=== PATIENT | male | born 1940 | race Caucasian/White ===

== ENCOUNTER 2020-12-05 07:59 | Emergency (ER) | payer MEDICARE ==
[~2020-12-05] VITALS: Ht 172.7 cm; Wt 114.8 kg
[~2020-12-05 07:59] MED LIST: ALLOPURINOL100 MG PO; ASPIR 8181 MG PO; ASPIRIN LOW-STR81 MG PO; CLEOCIN HCL300 MG PO; COLCRYS0.6 MG PO; CYMBALTA60 MG PO; GABAPENTIN100 MG PO; GABAPENTIN300 MG PO; HYDROCHLOROTHIA25 MG PO; LISINOPRIL-HCT1 EAC6 PO; LOSARTAN POTASS25 MG PO; NAPROXEN250 MG PO; NORCO 7.5-3251 EACH PO; PREDNISONE10 MG PO; PROTONIX40 M2 PO; SIMVASTATIN80 MG PO; SURFAK240 MG PO; ULTRAM50 MG PO; WARFARIN SODIUM5 MG PO; Z.0.SIMVASTATIN40 MG PO; Z.0.VICODIN 5-5001 E PO; Z.2.METFORMIN HCL500 PO
[2020-12-05 08:35] LABS: BASOPHILS # (AUTO) 0.1 (0.0-0.1); BASOPHILS % 0.7 % (0.0-1.0); EOSINOPHILS # (AUTO) 0.3 (0.0-0.4); EOSINOPHILS % 4.6 % (0.0-6.0); HEMATOCRIT 36.1 % (38.2-49.6); HEMOGLOBIN 10.5 g/dL (14.0-18.0); LYMPHOCYTES # (AUTO) 1.8 (1.0-3.2); LYMPHOCYTES % 26.3 % (18.0-39.1); MEAN CORPUSCULAR HEMOGLOBIN 22.5 pg (28-32); MEAN CORPUSCULAR HGB CONC 29.1 g/dL (31-35); MEAN CORPUSCULAR VOLUME 77.3 fL (81-99); MONOCYTES # (AUTO) 0.6 (0.2-0.8); MONOCYTES % 9.1 % (4.4-11.3); NEUTROPHILS # (AUTO) 4.1 (2.1-6.9); NEUTROPHILS % 58.9 % (38.7-80.0); PLATELET COUNT 167 x10e3/uL (140-360); RED BLOOD COUNT 4.67 x10e6/uL (4.3-5.7); RED CELL DISTRIBUTION WIDTH 21.4 % (11.7-14.4)
[2020-12-05 09:35] LABS: ANION GAP 17.8 mmol/L (8-16); CALCIUM 9.2 mg/dL (8.4-10.2); CREATININE, SERUM 1.17 mg/dL (0.72-1.25); POTASSIUM 3.8 mmol/L (3.5-5.1)
[2020-12-05] MEDS ORDERED: DOXYCYCLINE HY100 MG PO (09:53)
[2020-12-05 10:21] LABS: HYPOCHROMASIA MODERATE; PLATELET ESTIMATE ADEQUATE; PLATELET MORPHOLOGY COMMENT NORMAL; RBC MORPHOLOGY COMMENT ABNORMAL
== END 2020-12-05 10:17 | disposition home or self-care (01) ==
LOC: ER 08:05
DX: L03.116 Cellulitis of left lower limb (principal); I10 Essential (primary) hypertension; E78.5 Hyperlipidemia, unspecified; K21.9 Gastro-esophageal reflux disease without esophagitis; E78.00 Pure hypercholesterolemia, unspecified; Z86.718 Personal history of other venous thrombosis and embolism; Z95.5 Presence of coronary angioplasty implant and graft
CPT/HCPCS: 36415; 80048; 83880; 85025; 93970; 99284

== ENCOUNTER 2020-12-20 04:31 | Inpatient (IN) | payer MEDICARE ==
[~2020-12-20] VITALS: Ht 170.2 cm; Wt 114.8 kg
[2020-12-20] VITALS (7 sets, daily range): BP systolic 128–162; BP diastolic 61–94
[~2020-12-20 04:31] MED LIST changes: +DOXYCYCLINE HY100 MG PO
[2020-12-20] MEDS ORDERED: CEFEPIME 1 GM in SODIUM CHLORIDE 0.9% 50ML 50 ML IV ONE (04:45)
[2020-12-20 04:58] LABS: BASOPHILS % 0.5 % (0.0-1.0); EOSINOPHILS # (AUTO) 0.3 (0.0-0.4); EOSINOPHILS % 3.6 % (0.0-6.0); HEMOGLOBIN 10.6 g/dL (14.0-18.0); LYMPHOCYTES # (AUTO) 2.3 (1.0-3.2); LYMPHOCYTES % 27.5 % (18.0-39.1); MEAN CORPUSCULAR HEMOGLOBIN 22.9 pg (28-32); MEAN CORPUSCULAR HGB CONC 29.4 g/dL (31-35); MEAN CORPUSCULAR VOLUME 77.9 fL (81-99); MONOCYTES # (AUTO) 0.8 (0.2-0.8); MONOCYTES % 9.3 % (4.4-11.3); NEUTROPHILS # (AUTO) 4.9 (2.1-6.9); NEUTROPHILS % 58.7 % (38.7-80.0); PLATELET COUNT 114 x10e3/uL (140-360); RED BLOOD COUNT 4.62 x10e6/uL (4.3-5.7); RED CELL DISTRIBUTION WIDTH 22.5 % (11.7-14.4)
[2020-12-20 05:13] LABS: ALANINE AMINOTRANSFERASE 9 IU/L (0-55); ALBUMIN 3.2 g/dL (3.5-5.0); ALBUMIN/GLOBULIN RATIO 0.8 (0.8-2.0); ALKALINE PHOSPHATASE 82 IU/L (40-150); ANION GAP 17.9 mmol/L (8-16); BLOOD UREA NITROGEN 16 mg/dL (7-26); BUN/CREATININE RATIO 15 (6-25); CALCIUM 9.2 mg/dL (8.4-10.2); CARBON DIOXIDE 27 mmol/L (22-29); CHLORIDE 102 mmol/L (98-107); CREATINE KINASE 68 IU/L (30-200); EST GLOMERULAR FILTRATION RATE > 60 ML/MIN (60-); GLUCOSE 113 mg/dL (74-118); POTASSIUM 3.9 mmol/L (3.5-5.1); SODIUM 143 mmol/L (136-145)
[2020-12-20] MEDS ORDERED: LACTATED RINGER'S 1,000 ML INJ ONE ×2 (05:30)
[2020-12-20] MEDS ORDERED: VANCOMYCIN 750MG/NS 150ML IVPB 150 ML IV SCH (05:30)
[2020-12-20] MEDS: SODIUM CHLORIDE 0.9% 1000ML 1,000 ML IV SCH ×3 (07:22→21:00)
[2020-12-20] MEDS: PANTOPRAZOLE SOD 40 MG TABEC PO SCH (07:30)
[2020-12-20] MEDS: VANCOMYCIN 750MG/NS 150ML IVPB 150 ML IV SCH ×2 (08:00→21:00)
[2020-12-20] MEDS: GABAPENTIN 300 MG CAP PO SCH ×3 (09:00→21:00)
[2020-12-20] MEDS: HYDROCHLOROTHIAZIDE 25 MG TAB PO SCH (09:00)
[2020-12-20] MEDS ORDERED: LOSARTAN POTASSIUM 25 MG TAB PO SCH (09:00)
[2020-12-20] MEDS: LOSARTAN POTASSIUM 25 MG TAB PO SCH (09:00)
[2020-12-20] MEDS: ENOXAPARIN SOD INJ 40 MG/0.4 ML SYR SC SCH (16:05)
[2020-12-20] MEDS ORDERED: GABAPENTIN300 MG PO (20:28)
[2020-12-20] MEDS ORDERED: SIMVASTATIN20 MG PO (20:29)
[2020-12-20] MEDS ORDERED: DULOXETINE HCL60 MG PO (20:31)
[2020-12-20] MEDS ORDERED: PANTOPRAZOLE SO40 MG PO (20:31)
[2020-12-20] MEDS: ATORVASTATIN 40 MG TAB PO SCH (21:00)
[2020-12-21] VITALS (8 sets, daily range): BP systolic 103–192; BP diastolic 72–173
[2020-12-21] MEDS: SODIUM CHLORIDE 0.9% 1000ML 1,000 ML IV SCH ×3 (04:36→20:00)
[2020-12-21 05:28] LABS: BASOPHILS % 0.6 % (0.0-1.0); EOSINOPHILS # (AUTO) 0.3 (0.0-0.4); EOSINOPHILS % 3.6 % (0.0-6.0); HEMATOCRIT 33.6 % (38.2-49.6); HEMOGLOBIN 9.9 g/dL (14.0-18.0); LYMPHOCYTES # (AUTO) 1.6 (1.0-3.2); LYMPHOCYTES % 21.6 % (18.0-39.1); MEAN CORPUSCULAR HEMOGLOBIN 23.2 pg (28-32); MEAN CORPUSCULAR HGB CONC 29.5 g/dL (31-35); MEAN CORPUSCULAR VOLUME 78.9 fL (81-99); MONOCYTES # (AUTO) 0.7 (0.2-0.8); MONOCYTES % 9.5 % (4.4-11.3); NEUTROPHILS # (AUTO) 4.6 (2.1-6.9); NEUTROPHILS % 64.3 % (38.7-80.0); PLATELET COUNT 79 x10e3/uL (140-360); RED BLOOD COUNT 4.26 x10e6/uL (4.3-5.7); RED CELL DISTRIBUTION WIDTH 22.5 % (11.7-14.4)
[2020-12-21 05:44] LABS: ANION GAP 14.6 mmol/L (8-16); BLOOD UREA NITROGEN 11 mg/dL (7-26); BUN/CREATININE RATIO 13 (6-25); CALCIUM 8.7 mg/dL (8.4-10.2); CARBON DIOXIDE 25 mmol/L (22-29); CHLORIDE 106 mmol/L (98-107); CREATININE, SERUM 0.82 mg/dL (0.72-1.25); EST GLOMERULAR FILTRATION RATE > 60 ML/MIN (60-); GLUCOSE 117 mg/dL (74-118); POTASSIUM 3.6 mmol/L (3.5-5.1); SODIUM 142 mmol/L (136-145)
[2020-12-21] MEDS: CEFEPIME 1 GM in SODIUM CHLORIDE 0.9% 50ML 50 ML IV SCH (06:13)
[2020-12-21 07:27] LABS: RBC MORPHOLOGY COMMENT ABNORMAL
[2020-12-21 07:28] LABS: ANISOCYTOSIS MODERATE; HYPOCHROMASIA MODERATE; OVALOCYTES FEW; PLATELET ESTIMATE MODERATELY DECREASED; PLATELET MORPHOLOGY COMMENT FEW LARGE
[2020-12-21] MEDS: PANTOPRAZOLE SOD 40 MG TABEC PO SCH (08:04)
[2020-12-21] MEDS: HYDROCHLOROTHIAZIDE 25 MG TAB PO SCH (08:05)
[2020-12-21] MEDS: LOSARTAN POTASSIUM 25 MG TAB PO SCH (08:05)
[2020-12-21] MEDS: GABAPENTIN 300 MG CAP PO SCH ×3 (08:05→21:00)
[2020-12-21] MEDS: VANCOMYCIN 750MG/NS 150ML IVPB 150 ML IV SCH ×2 (09:58→20:00)
[2020-12-21] MEDS: ENOXAPARIN SOD INJ 40 MG/0.4 ML SYR SC SCH (16:59)
[2020-12-21] MEDS: ATORVASTATIN 40 MG TAB PO SCH (21:00)
[2020-12-22] VITALS: BP 129/93
[2020-12-22] MEDS: SODIUM CHLORIDE 0.9% 1000ML 1,000 ML IV SCH ×2 (03:48→12:13)
[2020-12-22 04:00] VITALS: BP 132/77
[2020-12-22] MEDS: CEFEPIME 1 GM in SODIUM CHLORIDE 0.9% 50ML 50 ML IV SCH (06:01)
[2020-12-22 07:56] VITALS: BP 133/80
[2020-12-22 08:19] VITALS: BP 133/80
[2020-12-22] MEDS: LOSARTAN POTASSIUM 25 MG TAB PO SCH (09:04)
[2020-12-22] MEDS: PANTOPRAZOLE SOD 40 MG TABEC PO SCH (09:04)
[2020-12-22] MEDS: HYDROCHLOROTHIAZIDE 25 MG TAB PO SCH (09:05)
[2020-12-22] MEDS: GABAPENTIN 300 MG CAP PO SCH ×2 (09:05→16:21)
[2020-12-22] MEDS: VANCOMYCIN 750MG/NS 150ML IVPB 150 ML IV SCH (09:27)
[2020-12-22 11:55] VITALS: BP 126/85
[2020-12-22] MEDS: ENOXAPARIN SOD INJ 40 MG/0.4 ML SYR SC SCH (16:21)
[2020-12-22] MEDS ORDERED: CEFUROXIME250 MG PO (16:34)
[2020-12-22] MEDS ORDERED: CLINDAMYCIN HC150 MG PO (16:34)
[2020-12-22 16:48] VITALS: BP 103/81
== END 2020-12-22 20:05 | disposition home or self-care (01) | DRG 603 ==
LOC: ER 04:42 → ERHOLD 05:30 → MED/SURG2 07:53
PROVIDERS: ADMIT Internal Medicine; ATTEND Internal Medicine
DX: L03.116 Cellulitis of left lower limb (principal); L03.115 Cellulitis of right lower limb; Z86.718 Personal history of other venous thrombosis and embolism; Z79.01 Long term (current) use of anticoagulants; E11.51 Type 2 diabetes mellitus with diabetic peripheral angiopathy without gangrene; E78.5 Hyperlipidemia, unspecified; I25.10 Atherosclerotic heart disease of native coronary artery without angina pectoris; Z95.5 Presence of coronary angioplasty implant and graft; E66.01 Morbid (severe) obesity due to excess calories; Z68.38 Body mass index [BMI] 38.0-38.9, adult
CPT/HCPCS: 36415; 71045; 80048; 80053; 80202; 82550; 82553; 82948; 83605; 83880; 84484; 85025; 87040; 93005; 93970; 96361; 99284; J0692; J1650; J7030; J7121; U0002

== ENCOUNTER 2021-01-12 16:06 | Inpatient (IN) | payer MEDICARE ==
[~2021-01-12] VITALS: Ht 172.7 cm; Wt 106.8 kg
[~2021-01-12 16:06] MED LIST changes: +CEFUROXIME250 MG PO; +CLINDAMYCIN HC150 MG PO; +DULOXETINE HCL60 MG PO; +PANTOPRAZOLE SO40 MG PO; +SIMVASTATIN20 MG PO
[2021-01-12] MEDS ORDERED: ALBUTEROL/IPRATROPIUM 3 ML NEB NEB ONE (16:45)
[2021-01-12 16:46] LABS: BASOPHILS # (AUTO) 0.1 (0.0-0.1); BASOPHILS % 0.7 % (0.0-1.0); EOSINOPHILS # (AUTO) 0.5 (0.0-0.4); EOSINOPHILS % 4.7 % (0.0-6.0); HEMATOCRIT 32.2 % (38.2-49.6); HEMOGLOBIN 9.7 g/dL (14.0-18.0); LYMPHOCYTES # (AUTO) 2.2 (1.0-3.2); LYMPHOCYTES % 21.6 % (18.0-39.1); MEAN CORPUSCULAR HEMOGLOBIN 24.3 pg (28-32); MEAN CORPUSCULAR HGB CONC 30.1 g/dL (31-35); MEAN CORPUSCULAR VOLUME 80.5 fL (81-99); MONOCYTES # (AUTO) 1.2 (0.2-0.8); MONOCYTES % 11.5 % (4.4-11.3); NEUTROPHILS # (AUTO) 6.2 (2.1-6.9); NEUTROPHILS % 60.9 % (38.7-80.0); PLATELET COUNT 146 x10e3/uL (140-360); RED CELL DISTRIBUTION WIDTH 23.2 % (11.7-14.4)
[2021-01-12 16:51] LABS: CLARITY,URINE CLOUDY (CLEAR); COLOR,URINE YELLOW (YELLOW); LEUKOCYTE ESTERASE ,URINE NEGATIVE (NEGATIVE); NITRITE,URINE NEGATIVE (NEGATIVE); PROTEIN,URINE DIPSTICK 2+ (NEGATIVE)
[2021-01-12 16:52] LABS: KETONES,URINE 1+ (NEGATIVE); URINE UROBILINOGEN 1 mg/dL (0.2 - 1)
[2021-01-12 17:02] LABS: ALBUMIN/GLOBULIN RATIO 0.8 (0.8-2.0); ANION GAP 22.3 mmol/L (8-16); CALCIUM 7.9 mg/dL (8.4-10.2); CREATININE, SERUM 5.46 mg/dL (0.72-1.25); POTASSIUM 3.3 mmol/L (3.5-5.1)
[2021-01-12 17:03] LABS: BACTERIA,URINE MANY /HPF; INR 1.06; PROTHROMBIN TIME 14.4 seconds (11.9-14.5)
[2021-01-12 17:04] LABS: EPITHELIAL CELLS,URINE FEW /LPF; PARTIAL THROMBOPLASTIN TIME 37.3 seconds (23.8-35.5); TRANSITIONAL EPI CELLS,URINE MANY
[2021-01-12 17:05] LABS: RENAL EPITHELIAL CELLS,URINE FEW
[2021-01-12 17:09] LABS: CREATINE KINASE MB 4.5 ng/mL (0-5.0)
[2021-01-12 17:10] LABS: MUCUS,URINE FEW (RARE)
[2021-01-12] MEDS ORDERED: ONDANSETRON HCL INJ 2MG/ML 2ML 2 MG/ML VIAL IV PRN ×2 (17:45→19:30)
[2021-01-12] MEDS ORDERED: DEXTROSE 50% SYRINGE 50 ML IV PRN (17:45)
[2021-01-12] MEDS: CEFTRIAXONE 1 GM in SODIUM CHLORIDE 0.9% 50ML 50 ML IV SCH (17:52)
[2021-01-12] MEDS ORDERED: GABAPENTIN600 MG PO (17:55)
[2021-01-12] MEDS ORDERED: POTASSIUM CHLO10 ME1 PO (17:55)
[2021-01-12] MEDS ORDERED: FUROSEMIDE40 MG PO (17:55)
[2021-01-12] MEDS: ALBUTEROL/IPRATROPIUM 3 ML NEB NEB SCH ×2 (19:20→23:21)
[2021-01-12] MEDS ORDERED: ZOLPIDEM TARTRATE 5 MG TAB PO PRN (19:30)
[2021-01-12] MEDS ORDERED: ACETAMINOPHEN 325 MG TAB PO PRN (19:30)
[2021-01-12] MEDS ORDERED: DOCUSATE SODIUM 100 MG CAP PO PRN (19:30)
[2021-01-12 20:16] LABS: CHOL/HDL RATIO 3.3 (3.9-4.7)
[2021-01-12] MEDS: INSULIN REGULAR, HUMAN 100 UNIT/1 ML SQ SCH (21:00)
[2021-01-12 21:10] VITALS: BP 102/63
[2021-01-12 21:15] VITALS: BP 102/63
[2021-01-12] MEDS: SIMVASTATIN 20 MG TAB PO SCH (21:30)
[2021-01-12] MEDS: FUROSEMIDE INJ 10 MG/ML 4 ML VIAL IV SCH (21:45)
[2021-01-13] VITALS (18 sets, daily range): BP systolic 77–158; BP diastolic 43–138
[2021-01-13 03:17] LABS: CREATINE KINASE MB 3.7 ng/mL (0-5.0)
[2021-01-13] MEDS: ALBUTEROL/IPRATROPIUM 3 ML NEB NEB SCH ×6 (03:30→23:01)
[2021-01-13] MEDS: FUROSEMIDE INJ 10 MG/ML 4 ML VIAL IV SCH (05:45)
[2021-01-13 06:05] LABS: BASOPHILS # (AUTO) 0.1 (0.0-0.1); BASOPHILS % 0.7 % (0.0-1.0); EOSINOPHILS # (AUTO) 0.2 (0.0-0.4); HEMATOCRIT 31.9 % (38.2-49.6); HEMOGLOBIN 9.2 g/dL (14.0-18.0); LYMPHOCYTES # (AUTO) 1.3 (1.0-3.2); LYMPHOCYTES % 14.5 % (18.0-39.1); MEAN CORPUSCULAR HEMOGLOBIN 23.8 pg (28-32); MEAN CORPUSCULAR HGB CONC 28.8 g/dL (31-35); MEAN CORPUSCULAR VOLUME 82.6 fL (81-99); MONOCYTES # (AUTO) 0.9 (0.2-0.8); MONOCYTES % 10.5 % (4.4-11.3); NEUTROPHILS # (AUTO) 6.2 (2.1-6.9); NEUTROPHILS % 71.5 % (38.7-80.0); PLATELET COUNT 125 x10e3/uL (140-360); RED BLOOD COUNT 3.86 x10e6/uL (4.3-5.7); RED CELL DISTRIBUTION WIDTH 23.4 % (11.7-14.4)
[2021-01-13 06:16] LABS: ALBUMIN 2.7 g/dL (3.5-5.0); ALBUMIN/GLOBULIN RATIO 0.8 (0.8-2.0); ANION GAP 19.9 mmol/L (8-16); CALCIUM 7.8 mg/dL (8.4-10.2); CREATININE, SERUM 5.45 mg/dL (0.72-1.25); POTASSIUM 3.9 mmol/L (3.5-5.1)
[2021-01-13 06:52] LABS: MAGNESIUM 1.3 MG/DL (1.3-2.1); PHOSPHORUS 7.9 MG/DL (2.3-4.7)
[2021-01-13 07:26] LABS: CREATINE KINASE MB 4.2 ng/mL (0-5.0)
[2021-01-13] MEDS ORDERED: PANTOPRAZOLE SOD 40 MG TABEC PO SCH (07:30)
[2021-01-13] MEDS: PANTOPRAZOLE SOD 40 MG TABEC PO SCH (07:30)
[2021-01-13] MEDS: INSULIN REGULAR, HUMAN 100 UNIT/1 ML SQ SCH ×4 (07:30→21:00)
[2021-01-13] MEDS: CEFTRIAXONE 1 GM in SODIUM CHLORIDE 0.9% 50ML 50 ML IV SCH (09:00)
[2021-01-13] MEDS: POTASSIUM CHLORIDE 10MEQ EA PO SCH (09:00)
[2021-01-13] MEDS: FUROSEMIDE INJ 100 MG in SODIUM CHLORIDE 0.9% 100 ML 90 ML IV SCH (12:30)
[2021-01-13] MEDS: PREDNISONE 20 MG TAB PO SCH (12:30)
[2021-01-13 14:23] LABS: CREATINE KINASE MB 4.9 ng/mL (0-5.0)
[2021-01-13] MEDS: MIDODRINE 2.5 MG TAB PO SCH ×2 (16:01→16:02)
[2021-01-13] MEDS: NOREPINEPHRINE 8 MG/D5W 250 ML 250 ML IV SCH (16:15)
[2021-01-13] MEDS ORDERED: VANCOMYCIN 1GM/NS 250 ML 250 ML IV ONE (19:30)
[2021-01-13] MEDS: SIMVASTATIN 20 MG TAB PO SCH (21:00)
[2021-01-13] MEDS ORDERED: Vancomycin IV 1 GM VIAL ONE (21:26)
[2021-01-13] MEDS ORDERED: SODIUM CHLORIDE 0.9% 250ML 250 ML ONE (21:26)
[2021-01-14] VITALS (24 sets, daily range): BP systolic 85–125; BP diastolic 46–88
[2021-01-14] MEDS: NOREPINEPHRINE 8 MG/D5W 250 ML 250 ML IV SCH ×2 (01:45→15:36)
[2021-01-14] MEDS: ALBUTEROL/IPRATROPIUM 3 ML NEB NEB SCH ×6 (02:30→23:30)
[2021-01-14 02:53] LABS: BODY FLUID APPEARANCE SL.CLOUDY; BODY FLUID COLOR YELLOW; RBC,BODY FLUID 1000 cells/uL; WBC,BODY FLUID 177 cells/uL
[2021-01-14 02:56] LABS: BODY FLUID TYPE PERITONEAL
[2021-01-14 03:12] LABS: TOTAL PROTEIN 24HR, URINE 212.4 mg/24hr (50-100); TOTAL PROTEIN, URINE 141.6 mg/dL (1-14)
[2021-01-14 03:21] LABS: CREATININE,URINE RANDOM 429.59 mg/dL (63-166)
[2021-01-14 04:21] LABS: LYMPHOCYTES,BODY FLUID 10 %
[2021-01-14 04:22] LABS: MONO/MACROPHG,BODY FLUID 5 %; OTHER CELLS,BODY FLUID 5 %
[2021-01-14 04:23] LABS: NEUTROPHILS,BODY FLUID 80 %
[2021-01-14 05:49] LABS: BASOPHILS % 0.2 % (0.0-1.0); HEMATOCRIT 30.2 % (38.2-49.6); HEMOGLOBIN 8.9 g/dL (14.0-18.0); LYMPHOCYTES # (AUTO) 0.7 (1.0-3.2); LYMPHOCYTES % 6.6 % (18.0-39.1); MEAN CORPUSCULAR HEMOGLOBIN 24.1 pg (28-32); MEAN CORPUSCULAR HGB CONC 29.5 g/dL (31-35); MEAN CORPUSCULAR VOLUME 81.8 fL (81-99); MONOCYTES # (AUTO) 0.4 (0.2-0.8); NEUTROPHILS # (AUTO) 8.8 (2.1-6.9); NEUTROPHILS % 88.3 % (38.7-80.0); PLATELET COUNT 149 x10e3/uL (140-360); RED BLOOD COUNT 3.69 x10e6/uL (4.3-5.7)
[2021-01-14 06:26] LABS: ANION GAP 15.8 mmol/L (8-16); CALCIUM 7.7 mg/dL (8.4-10.2); CREATININE, SERUM 5.42 mg/dL (0.72-1.25); MAGNESIUM 1.3 MG/DL (1.3-2.1); POTASSIUM 3.8 mmol/L (3.5-5.1)
[2021-01-14 07:15] LABS: FREE THYROXINE INDEX 1.1871 (1.4-3.8); THYROID STIMULATING HORMONE 0.611 uIU/mL (0.350-4.940)
[2021-01-14] MEDS: PANTOPRAZOLE SOD 40 MG TABEC PO SCH (07:30)
[2021-01-14] MEDS: INSULIN REGULAR, HUMAN 100 UNIT/1 ML SQ SCH ×4 (07:30→21:16)
[2021-01-14] MEDS: MIDODRINE HCL 5 MG TABLET PO SCH ×3 (08:00→16:40)
[2021-01-14] MEDS: POTASSIUM CHLORIDE 10MEQ EA PO SCH ×2 (08:21→17:35)
[2021-01-14] MEDS: FAMOTIDINE 20 MG TAB PO SCH ×2 (08:21→17:36)
[2021-01-14] MEDS: PREDNISONE 20 MG TAB PO SCH ×2 (08:21→17:36)
[2021-01-14] MEDS: CEFTRIAXONE 1 GM in SODIUM CHLORIDE 0.9% 50ML 50 ML IV SCH (08:55)
[2021-01-14] MEDS: FUROSEMIDE INJ 100 MG in SODIUM CHLORIDE 0.9% 100 ML 90 ML IV SCH (09:32)
[2021-01-14] MEDS ORDERED: FENTANYL CITRATE/PF 100MCG/2 ML INJ ONE (13:08)
[2021-01-14] MEDS ORDERED: MIDAZOLAM HCL 2 MG/2 ML VIAL ONE ×2 (13:08→13:31)
[2021-01-14] MEDS ORDERED: HEPARIN SOD (PORCINE) 1000 UNIT/ML SDV ONE ×2 (13:08→17:37)
[2021-01-14] MEDS ORDERED: POVIDONE IODINE 0.05% 0.05 % ML PO ONE (13:49)
[2021-01-14] MEDS ORDERED: PROPOFOL IV EMULSION 10 MG/ML 20 ML VIAL ONE (13:49)
[2021-01-14] MEDS ORDERED: SODIUM CHLORIDE 0.9% 1000ML 2,000 ML ONE (14:48)
[2021-01-14] MEDS ORDERED: MANNITOL 25% 12.5GM/50ML 100 ML ONE (15:39)
[2021-01-14] MEDS ORDERED: ALBUMIN 25% 25GM 100ML 0 ML ONE (15:58)
[2021-01-14] MEDS ORDERED: ALBUMIN 25% 25GM 100ML 100 ML ONE (16:01)
[2021-01-14] MEDS: SIMVASTATIN 20 MG TAB PO SCH (21:14)
[2021-01-15] VITALS (29 sets, daily range): BP systolic 81–144; BP diastolic 35–123
[2021-01-15] MEDS ORDERED: FUROSEMIDE INJ 10 MG/ML 10 ML VIAL ONE (01:17)
[2021-01-15] MEDS ORDERED: SODIUM CHLORIDE 0.9% 100 ML ONE (01:17)
[2021-01-15] MEDS: FUROSEMIDE INJ 100 MG in SODIUM CHLORIDE 0.9% 100 ML 90 ML IV SCH (01:36)
[2021-01-15] MEDS: NOREPINEPHRINE 8 MG/D5W 250 ML 250 ML IV SCH (03:06)
[2021-01-15] MEDS: ALBUTEROL/IPRATROPIUM 3 ML NEB NEB SCH ×5 (03:10→19:40)
[2021-01-15 06:11] LABS: ALBUMIN 2.8 g/dL (3.5-5.0); ALBUMIN/GLOBULIN RATIO 0.9 (0.8-2.0); ANION GAP 14.6 mmol/L (8-16); CALCIUM 7.8 mg/dL (8.4-10.2); CREATININE, SERUM 3.93 mg/dL (0.72-1.25); MAGNESIUM 1.3 MG/DL (1.3-2.1); PHOSPHORUS 5.6 MG/DL (2.3-4.7); POTASSIUM 3.6 mmol/L (3.5-5.1)
[2021-01-15 06:48] LABS: BASOPHILS % 0.1 % (0.0-1.0); HEMATOCRIT 26.8 % (38.2-49.6); HEMOGLOBIN 8.1 g/dL (14.0-18.0); LYMPHOCYTES # (AUTO) 0.6 (1.0-3.2); LYMPHOCYTES % 5.5 % (18.0-39.1); MEAN CORPUSCULAR HEMOGLOBIN 24.4 pg (28-32); MEAN CORPUSCULAR HGB CONC 30.2 g/dL (31-35); MEAN CORPUSCULAR VOLUME 80.7 fL (81-99); MONOCYTES # (AUTO) 0.5 (0.2-0.8); NEUTROPHILS # (AUTO) 9.5 (2.1-6.9); NEUTROPHILS % 88.9 % (38.7-80.0); RED BLOOD COUNT 3.32 x10e6/uL (4.3-5.7); RED CELL DISTRIBUTION WIDTH 22.5 % (11.7-14.4)
[2021-01-15 06:57] LABS: PLATELET COUNT 64 x10e3/uL (140-360)
[2021-01-15 07:48] LABS: LARGE PLATELETS FEW; PLATELET ESTIMATE MODERATELY DECREASED
[2021-01-15] MEDS: INSULIN REGULAR, HUMAN 100 UNIT/1 ML SQ SCH ×4 (08:21→20:50)
[2021-01-15] MEDS: MIDODRINE HCL 5 MG TABLET PO SCH ×3 (08:21→16:51)
[2021-01-15] MEDS: PREDNISONE 20 MG TAB PO SCH (08:22)
[2021-01-15] MEDS: FAMOTIDINE 20 MG TAB PO SCH (08:22)
[2021-01-15] MEDS: POTASSIUM CHLORIDE 10MEQ EA PO SCH (08:22)
[2021-01-15] MEDS: CEFTRIAXONE 1 GM in SODIUM CHLORIDE 0.9% 50ML 50 ML IV SCH (08:22)
[2021-01-15] MEDS: BALSAM PERU/CASTOR OIL 60 GM OINT...G. TP SCH (08:23)
[2021-01-15] MEDS ORDERED: SODIUM CHLORIDE 0.9% 1000ML 1,000 ML ONE (08:46)
[2021-01-15] MEDS ORDERED: MANNITOL 25% 12.5GM/50ML 50 ML ONE (11:23)
[2021-01-15] MEDS ORDERED: EPOETIN ALFA-EPBX 10,000 UNIT/ML VIAL SC SCH (16:00)
[2021-01-15] MEDS: SIMVASTATIN 20 MG TAB PO SCH (20:50)
[2021-01-16] VITALS (26 sets, daily range): BP systolic 76–153; BP diastolic 49–129
[2021-01-16] MEDS: ALBUTEROL/IPRATROPIUM 3 ML NEB NEB SCH ×6 (00:05→23:00)
[2021-01-16 05:52] LABS: HEMATOCRIT 26.2 % (38.2-49.6); HEMOGLOBIN 7.9 g/dL (14.0-18.0); LYMPHOCYTES # (AUTO) 0.8 (1.0-3.2); LYMPHOCYTES % 9.1 % (18.0-39.1); MEAN CORPUSCULAR HGB CONC 30.2 g/dL (31-35); MEAN CORPUSCULAR VOLUME 79.6 fL (81-99); MONOCYTES # (AUTO) 0.7 (0.2-0.8); NEUTROPHILS # (AUTO) 7.5 (2.1-6.9); NEUTROPHILS % 82.2 % (38.7-80.0); RED BLOOD COUNT 3.29 x10e6/uL (4.3-5.7); RED CELL DISTRIBUTION WIDTH 22.9 % (11.7-14.4)
[2021-01-16 06:08] LABS: PLATELET COUNT 31 x10e3/uL (140-360)
[2021-01-16 06:27] LABS: ALBUMIN 2.9 g/dL (3.5-5.0); ALBUMIN/GLOBULIN RATIO 0.9 (0.8-2.0); ANION GAP 14.7 mmol/L (8-16); CALCIUM 8.1 mg/dL (8.4-10.2); CREATININE, SERUM 3.27 mg/dL (0.72-1.25); MAGNESIUM 1.4 MG/DL (1.3-2.1); PHOSPHORUS 4.5 MG/DL (2.3-4.7); POTASSIUM 3.7 mmol/L (3.5-5.1)
[2021-01-16] MEDS ORDERED: ALBUMIN 25% 25GM 100ML 0.25 GM/ML BTL IV PRN (07:30)
[2021-01-16] MEDS ORDERED: HEPARIN SOD (PORCINE) 1000 UNIT/ML SDV IV PRN (07:30)
[2021-01-16] MEDS ORDERED: SODIUM CHLORIDE 0.9% 250ML 500 ML IV PRN (07:30)
[2021-01-16] MEDS ORDERED: SODIUM CHLORIDE 0.9% 1000ML 2,000 ML IV PRN (07:30)
[2021-01-16] MEDS: MIDODRINE HCL 5 MG TABLET PO SCH ×3 (08:02→15:49)
[2021-01-16] MEDS: BALSAM PERU/CASTOR OIL 60 GM OINT...G. TP SCH (08:02)
[2021-01-16] MEDS: FAMOTIDINE 20 MG TAB PO SCH (08:02)
[2021-01-16] MEDS: PREDNISONE 20 MG TAB PO SCH (08:02)
[2021-01-16] MEDS: POTASSIUM CHLORIDE 10MEQ EA PO SCH (08:02)
[2021-01-16] MEDS: INSULIN REGULAR, HUMAN 100 UNIT/1 ML SQ SCH ×4 (08:05→20:46)
[2021-01-16 12:10] LABS: FERRITIN 66.63 ng/mL (21.81-274.66)
[2021-01-16] MEDS: CEFTRIAXONE 1 GM in SODIUM CHLORIDE 0.9% 50ML 50 ML IV SCH (12:16)
[2021-01-16 12:33] LABS: HEMATOCRIT 26.5 % (38.2-49.6); MEAN CORPUSCULAR HEMOGLOBIN 24.2 pg (28-32); MEAN CORPUSCULAR HGB CONC 30.2 g/dL (31-35); MEAN CORPUSCULAR VOLUME 80.1 fL (81-99); RED BLOOD COUNT 3.31 x10e6/uL (4.3-5.7)
[2021-01-16 12:46] LABS: PLATELET COUNT 23 x10e3/uL (140-360)
[2021-01-16 12:57] LABS: INR 1.37; PROTHROMBIN TIME 17.6 seconds (11.9-14.5)
[2021-01-16 13:18] LABS: LYMPHOCYTES % (MANUAL) 2 % (19-48); MONOCYTES % (MANUAL) 2 % (3.4-9.0); NEUTROPHILS % (MANUAL) 96 % (40-74); PLATELET ESTIMATE MARKEDLY DECREASED; PLATELET MORPHOLOGY COMMENT NORMAL
[2021-01-16 13:19] LABS: OVALOCYTES FEW
[2021-01-16 13:20] LABS: ANISOCYTOSIS MODERATE; HYPOCHROMASIA MODERATE; RBC MORPHOLOGY COMMENT ABNORMAL
[2021-01-16 14:04] LABS: FIBRINOGEN MAIN LAB 92 mg/dL (204-462)
[2021-01-16 15:14] LABS: ALPHA 2 GLOBULIN URINE PEP 6.2 % (.)
[2021-01-16] MEDS: NOREPINEPHRINE 8 MG/D5W 250 ML 250 ML IV SCH (15:56)
[2021-01-16] MEDS: SIMVASTATIN 20 MG TAB PO SCH (21:00)
[2021-01-17] VITALS (20 sets, daily range): BP systolic 82–145; BP diastolic 42–121
[2021-01-17] MEDS: ALBUTEROL/IPRATROPIUM 3 ML NEB NEB SCH ×6 (03:10→23:25)
[2021-01-17 05:26] LABS: BASOPHILS % 0.1 % (0.0-1.0); EOSINOPHILS % 0.4 % (0.0-6.0); HEMATOCRIT 26.4 % (38.2-49.6); HEMOGLOBIN 7.7 g/dL (14.0-18.0); LYMPHOCYTES % 10.2 % (18.0-39.1); MEAN CORPUSCULAR HGB CONC 29.2 g/dL (31-35); MEAN CORPUSCULAR VOLUME 82.2 fL (81-99); MONOCYTES # (AUTO) 0.9 (0.2-0.8); MONOCYTES % 9.1 % (4.4-11.3); NEUTROPHILS # (AUTO) 7.6 (2.1-6.9); NEUTROPHILS % 79.6 % (38.7-80.0); RED BLOOD COUNT 3.21 x10e6/uL (4.3-5.7); RED CELL DISTRIBUTION WIDTH 22.4 % (11.7-14.4)
[2021-01-17 05:32] LABS: PLATELET COUNT 23 x10e3/uL (140-360)
[2021-01-17 05:43] LABS: ALBUMIN 2.9 g/dL (3.5-5.0); ALBUMIN/GLOBULIN RATIO 0.9 (0.8-2.0); ANION GAP 10.7 mmol/L (8-16); CALCIUM 8.5 mg/dL (8.4-10.2); CREATININE, SERUM 2.55 mg/dL (0.72-1.25); MAGNESIUM 1.7 MG/DL (1.3-2.1); PHOSPHORUS 4.8 MG/DL (2.3-4.7); POTASSIUM 3.7 mmol/L (3.5-5.1)
[2021-01-17] MEDS: MIDODRINE HCL 5 MG TABLET PO SCH ×3 (08:36→17:24)
[2021-01-17] MEDS: PREDNISONE 20 MG TAB PO SCH (08:37)
[2021-01-17] MEDS: BALSAM PERU/CASTOR OIL 60 GM OINT...G. TP SCH (08:37)
[2021-01-17] MEDS: POTASSIUM CHLORIDE 10MEQ EA PO SCH (08:37)
[2021-01-17] MEDS: FAMOTIDINE 20 MG TAB PO SCH (08:37)
[2021-01-17] MEDS: CEFTRIAXONE 1 GM in SODIUM CHLORIDE 0.9% 50ML 50 ML IV SCH (08:37)
[2021-01-17] MEDS: INSULIN REGULAR, HUMAN 100 UNIT/1 ML SQ SCH ×4 (08:38→21:00)
[2021-01-17] MEDS ORDERED: SODIUM FERRIC GLUCONATE COMPLX 125 MG in SODIUM CHLORIDE 0.9% 100 ML 100 ML IV ONE (12:00)
[2021-01-17] MEDS: NOREPINEPHRINE 8 MG/D5W 250 ML 250 ML IV SCH (16:15)
[2021-01-17 18:08] LABS: CREATININE,URINE RANDOM 240.45 mg/dL (63-166); TOTAL PROTEIN, URINE 141.3 mg/dL (1-14)
[2021-01-17] MEDS: SIMVASTATIN 20 MG TAB PO SCH (22:07)
[2021-01-18] VITALS (8 sets, daily range): BP systolic 90–116; BP diastolic 54–84
[2021-01-18] MEDS: ALBUTEROL/IPRATROPIUM 3 ML NEB NEB SCH ×6 (02:50→23:30)
[2021-01-18 05:41] LABS: BASOPHILS % 0.1 % (0.0-1.0); EOSINOPHILS % 0.1 % (0.0-6.0); HEMATOCRIT 25.3 % (38.2-49.6); HEMOGLOBIN 7.5 g/dL (14.0-18.0); LYMPHOCYTES # (AUTO) 0.5 (1.0-3.2); MEAN CORPUSCULAR HEMOGLOBIN 24.2 pg (28-32); MEAN CORPUSCULAR HGB CONC 29.6 g/dL (31-35); MEAN CORPUSCULAR VOLUME 81.6 fL (81-99); MONOCYTES # (AUTO) 0.4 (0.2-0.8); MONOCYTES % 6.3 % (4.4-11.3); NEUTROPHILS # (AUTO) 5.9 (2.1-6.9); NEUTROPHILS % 85.5 % (38.7-80.0); RED CELL DISTRIBUTION WIDTH 22.8 % (11.7-14.4)
[2021-01-18 05:52] LABS: PLATELET COUNT 28 x10e3/uL (140-360)
[2021-01-18 06:01] LABS: ALBUMIN 2.8 g/dL (3.5-5.0); ALBUMIN/GLOBULIN RATIO 0.9 (0.8-2.0); ANION GAP 13.9 mmol/L (8-16); CALCIUM 8.7 mg/dL (8.4-10.2); CREATININE, SERUM 2.89 mg/dL (0.72-1.25); MAGNESIUM 1.6 MG/DL (1.3-2.1); PHOSPHORUS 4.7 MG/DL (2.3-4.7); POTASSIUM 3.9 mmol/L (3.5-5.1)
[2021-01-18] MEDS: INSULIN REGULAR, HUMAN 100 UNIT/1 ML SQ SCH ×4 (07:30→20:12)
[2021-01-18] MEDS: CEFTRIAXONE 1 GM in SODIUM CHLORIDE 0.9% 50ML 50 ML IV SCH (09:02)
[2021-01-18] MEDS: MIDODRINE HCL 5 MG TABLET PO SCH ×3 (09:02→16:58)
[2021-01-18] MEDS: POTASSIUM CHLORIDE 10MEQ EA PO SCH (09:03)
[2021-01-18] MEDS: PREDNISONE 20 MG TAB PO SCH (09:03)
[2021-01-18] MEDS: FAMOTIDINE 20 MG TAB PO SCH (09:03)
[2021-01-18] MEDS: BALSAM PERU/CASTOR OIL 60 GM OINT...G. TP SCH (09:03)
[2021-01-18] MEDS ORDERED: SODIUM CHLORIDE 0.9% 1000ML 1,000 ML ONE (15:35)
[2021-01-18] MEDS: NOREPINEPHRINE 8 MG/D5W 250 ML 250 ML IV SCH (16:15)
[2021-01-18] MEDS ORDERED: ALBUMIN 25% 25GM 100ML 100 ML ONE (16:47)
[2021-01-18] MEDS: SIMVASTATIN 20 MG TAB PO SCH (20:32)
[2021-01-19] VITALS (7 sets, daily range): BP systolic 106–129; BP diastolic 61–78
[2021-01-19] MEDS: ALBUTEROL/IPRATROPIUM 3 ML NEB NEB SCH ×6 (03:10→22:40)
[2021-01-19 04:59] LABS: BASOPHILS % 0.1 % (0.0-1.0); EOSINOPHILS % 0.1 % (0.0-6.0); HEMATOCRIT 25.1 % (38.2-49.6); HEMOGLOBIN 7.4 g/dL (14.0-18.0); LYMPHOCYTES # (AUTO) 0.6 (1.0-3.2); LYMPHOCYTES % 5.9 % (18.0-39.1); MEAN CORPUSCULAR HEMOGLOBIN 24.5 pg (28-32); MEAN CORPUSCULAR HGB CONC 29.5 g/dL (31-35); MEAN CORPUSCULAR VOLUME 83.1 fL (81-99); MONOCYTES # (AUTO) 0.8 (0.2-0.8); MONOCYTES % 7.5 % (4.4-11.3); NEUTROPHILS # (AUTO) 9.3 (2.1-6.9); RED BLOOD COUNT 3.02 x10e6/uL (4.3-5.7); RED CELL DISTRIBUTION WIDTH 23.3 % (11.7-14.4)
[2021-01-19 05:10] LABS: PLATELET COUNT 29 x10e3/uL (140-360)
[2021-01-19 06:36] LABS: HYPOCHROMASIA MODE; LYMPHOCYTES % (MANUAL) 6 % (19-48); MONOCYTES % (MANUAL) 7 % (3.4-9.0); NEUTROPHILS % (MANUAL) 87 % (40-74); PLATELET ESTIMATE MARKEDLY DECREASED; PLATELET MORPHOLOGY COMMENT FEW LARGE; POLYCHROMASIA FEW; RBC MORPHOLOGY COMMENT NORMAL
[2021-01-19] MEDS: INSULIN REGULAR, HUMAN 100 UNIT/1 ML SQ SCH ×4 (07:30→21:05)
[2021-01-19 07:31] LABS: ALBUMIN 3.4 g/dL (3.5-5.0); ALBUMIN/GLOBULIN RATIO 1.2 (0.8-2.0); ANION GAP 15.3 mmol/L (8-16); CREATININE, SERUM 2.44 mg/dL (0.72-1.25); MAGNESIUM 1.6 MG/DL (1.3-2.1); POTASSIUM 4.3 mmol/L (3.5-5.1)
[2021-01-19] MEDS: PREDNISONE 20 MG TAB PO SCH (08:43)
[2021-01-19] MEDS: MIDODRINE HCL 5 MG TABLET PO SCH ×3 (08:43→16:47)
[2021-01-19] MEDS: FAMOTIDINE 20 MG TAB PO SCH (08:43)
[2021-01-19] MEDS: POTASSIUM CHLORIDE 10MEQ EA PO SCH (08:43)
[2021-01-19] MEDS: CEFTRIAXONE 1 GM in SODIUM CHLORIDE 0.9% 50ML 50 ML IV SCH (08:50)
[2021-01-19] MEDS ORDERED: SODIUM CHLORIDE 0.9% 250ML 250 ML ONE (08:55)
[2021-01-19 10:48] LABS: INR 1.49; PROTHROMBIN TIME 18.8 seconds (11.9-14.5)
[2021-01-19] MEDS: BALSAM PERU/CASTOR OIL 60 GM OINT...G. TP SCH (18:32)
[2021-01-19] MEDS: SIMVASTATIN 20 MG TAB PO SCH (21:05)
[2021-01-20] VITALS (7 sets, daily range): BP systolic 113–127; BP diastolic 62–99
[2021-01-20] MEDS: ALBUTEROL/IPRATROPIUM 3 ML NEB NEB SCH ×6 (02:30→23:30)
[2021-01-20] MEDS: INSULIN REGULAR, HUMAN 100 UNIT/1 ML SQ SCH ×4 (07:30→21:30)
[2021-01-20] MEDS: MIDODRINE HCL 5 MG TABLET PO SCH ×3 (09:18→17:30)
[2021-01-20] MEDS: FAMOTIDINE 20 MG TAB PO SCH (09:19)
[2021-01-20] MEDS: PREDNISONE 20 MG TAB PO SCH (09:19)
[2021-01-20] MEDS: POTASSIUM CHLORIDE 10MEQ EA PO SCH (09:19)
[2021-01-20] MEDS: CEFTRIAXONE 1 GM in SODIUM CHLORIDE 0.9% 50ML 50 ML IV SCH (09:20)
[2021-01-20] MEDS: BALSAM PERU/CASTOR OIL 60 GM OINT...G. TP SCH (09:37)
[2021-01-20 10:13] LABS: BASOPHILS % 0.1 % (0.0-1.0); EOSINOPHILS # (AUTO) 0.2 (0.0-0.4); EOSINOPHILS % 1.9 % (0.0-6.0); HEMATOCRIT 25.7 % (38.2-49.6); HEMOGLOBIN 7.3 g/dL (14.0-18.0); LYMPHOCYTES % 8.7 % (18.0-39.1); MEAN CORPUSCULAR HEMOGLOBIN 24.1 pg (28-32); MEAN CORPUSCULAR HGB CONC 28.4 g/dL (31-35); MEAN CORPUSCULAR VOLUME 84.8 fL (81-99); MONOCYTES # (AUTO) 1.1 (0.2-0.8); MONOCYTES % 9.3 % (4.4-11.3); NEUTROPHILS # (AUTO) 9.1 (2.1-6.9); NEUTROPHILS % 78.8 % (38.7-80.0); RED BLOOD COUNT 3.03 x10e6/uL (4.3-5.7); RED CELL DISTRIBUTION WIDTH 23.6 % (11.7-14.4)
[2021-01-20 10:14] LABS: PLATELET COUNT 50 x10e3/uL (140-360)
[2021-01-20 10:27] LABS: ANION GAP 11.4 mmol/L (8-16); CALCIUM 9.5 mg/dL (8.4-10.2); CREATININE, SERUM 2.7 mg/dL (0.72-1.25); POTASSIUM 4.4 mmol/L (3.5-5.1)
[2021-01-20] MEDS: SIMVASTATIN 20 MG TAB PO SCH (21:45)
[2021-01-21] VITALS (7 sets, daily range): BP systolic 110–137; BP diastolic 70–81
[2021-01-21] MEDS: ALBUTEROL/IPRATROPIUM 3 ML NEB NEB SCH ×5 (02:42→20:25)
[2021-01-21] MEDS: INSULIN REGULAR, HUMAN 100 UNIT/1 ML SQ SCH ×4 (07:30→21:00)
[2021-01-21] MEDS: FAMOTIDINE 20 MG TAB PO SCH (08:38)
[2021-01-21] MEDS: CEFTRIAXONE 1 GM in SODIUM CHLORIDE 0.9% 50ML 50 ML IV SCH (08:38)
[2021-01-21] MEDS: PREDNISONE 20 MG TAB PO SCH (08:38)
[2021-01-21] MEDS: MIDODRINE HCL 5 MG TABLET PO SCH ×3 (08:38→16:00)
[2021-01-21] MEDS: POTASSIUM CHLORIDE 10MEQ EA PO SCH (09:00)
[2021-01-21 09:03] LABS: BASOPHILS % 0.1 % (0.0-1.0); EOSINOPHILS # (AUTO) 0.2 (0.0-0.4); EOSINOPHILS % 1.3 % (0.0-6.0); HEMATOCRIT 25.8 % (38.2-49.6); HEMOGLOBIN 7.5 g/dL (14.0-18.0); LYMPHOCYTES # (AUTO) 0.9 (1.0-3.2); LYMPHOCYTES % 6.3 % (18.0-39.1); MEAN CORPUSCULAR HEMOGLOBIN 24.8 pg (28-32); MEAN CORPUSCULAR HGB CONC 29.1 g/dL (31-35); MEAN CORPUSCULAR VOLUME 85.1 fL (81-99); MONOCYTES # (AUTO) 1.4 (0.2-0.8); MONOCYTES % 10.4 % (4.4-11.3); NEUTROPHILS % 81.1 % (38.7-80.0); PLATELET COUNT 53 x10e3/uL (140-360); RED BLOOD COUNT 3.03 x10e6/uL (4.3-5.7); RED CELL DISTRIBUTION WIDTH 23.9 % (11.7-14.4)
[2021-01-21 09:20] LABS: ANION GAP 11.8 mmol/L (8-16); CALCIUM 9.5 mg/dL (8.4-10.2); CREATININE, SERUM 2.64 mg/dL (0.72-1.25); POTASSIUM 4.8 mmol/L (3.5-5.1)
[2021-01-21] MEDS: BALSAM PERU/CASTOR OIL 60 GM OINT...G. TP SCH (10:00)
[2021-01-21] MEDS: SIMVASTATIN 20 MG TAB PO SCH (21:09)
[2021-01-22] MEDS: ALBUTEROL/IPRATROPIUM 3 ML NEB NEB SCH ×6 (00:10→19:52)
[2021-01-22 00:17] VITALS: BP 123/63
[2021-01-22 05:21] VITALS: BP 115/71
[2021-01-22] MEDS: INSULIN REGULAR, HUMAN 100 UNIT/1 ML SQ SCH ×3 (07:30→16:30)
[2021-01-22 07:48] VITALS: BP 136/74
[2021-01-22 08:53] VITALS: BP 136/74
[2021-01-22] MEDS: BALSAM PERU/CASTOR OIL 60 GM OINT...G. TP SCH (09:00)
[2021-01-22] MEDS: POTASSIUM CHLORIDE 10MEQ EA PO SCH (09:00)
[2021-01-22] MEDS: PREDNISONE 20 MG TAB PO SCH (09:00)
[2021-01-22] MEDS: CEFTRIAXONE 1 GM in SODIUM CHLORIDE 0.9% 50ML 50 ML IV SCH (09:10)
[2021-01-22] MEDS: MIDODRINE HCL 5 MG TABLET PO SCH ×3 (09:10→16:00)
[2021-01-22] MEDS: FAMOTIDINE 20 MG TAB PO SCH (09:10)
[2021-01-22 11:06] LABS: ANION GAP 11.3 mmol/L (8-16); CALCIUM 8.8 mg/dL (8.4-10.2); CREATININE, SERUM 2.24 mg/dL (0.72-1.25); POTASSIUM 4.3 mmol/L (3.5-5.1)
[2021-01-22 11:24] VITALS: BP 124/64
[2021-01-22] MEDS ORDERED: PREDNISONE20 MG PO (14:47)
[2021-01-22] MEDS ORDERED: ACETAMINOPHEN325 M1 PO (14:47)
[2021-01-22] MEDS ORDERED: COLACE100 MG PO (14:47)
[2021-01-22] MEDS ORDERED: MIDODRINE HCL5 MG PO (14:47)
[2021-01-22] MEDS ORDERED: FAMOTIDINE20 MG PO (14:47)
[2021-01-22] MEDS ORDERED: K DUR10 MEQ PO (14:47)
[2021-01-22 15:30] VITALS: BP 107/72
[2021-01-22] MEDS: SIMVASTATIN 20 MG TAB PO SCH (20:28)
== END 2021-01-22 20:52 | disposition home health service (06) | DRG 871 ==
LOC: ER 16:41 → ERHOLD 17:37 → MED/SURG2 21:10 → ICU 01-13 14:51 → IMCU 01-17 19:19 → MED/SURG2 01-18 22:38
PROVIDERS: ADMIT Internal Medicine; ATTEND Internal Medicine
PROC: 02HV33Z Insertion of Infusion Device into Superior Vena Cava, Percutaneous Approach (ICD-10-PCS; principal; 2021-01-13)
PROC: 0W9G3ZZ Drainage of Peritoneal Cavity, Percutaneous Approach (ICD-10-PCS; 2021-01-14)
PROC: 5A1D70Z Performance of Urinary Filtration, Intermittent, Less than 6 Hours Per Day (ICD-10-PCS; 2021-01-14)
PROC: 0TB13ZX Excision of Left Kidney, Percutaneous Approach, Diagnostic (ICD-10-PCS; 2021-01-15)
DX: A41.9 Sepsis, unspecified organism (principal); N17.0 Acute kidney failure with tubular necrosis; R65.21 Severe sepsis with septic shock; G92 Toxic encephalopathy; N39.0 Urinary tract infection, site not specified; E87.2 Acidosis; R18.8 Other ascites; J44.9 Chronic obstructive pulmonary disease, unspecified; I48.91 Unspecified atrial fibrillation; Z79.01 Long term (current) use of anticoagulants; D69.6 Thrombocytopenia, unspecified; E88.09 Other disorders of plasma-protein metabolism, not elsewhere classified; E66.01 Morbid (severe) obesity due to excess calories; Z68.37 Body mass index [BMI] 37.0-37.9, adult; G47.33 Obstructive sleep apnea (adult) (pediatric); E78.5 Hyperlipidemia, unspecified; I25.10 Atherosclerotic heart disease of native coronary artery without angina pectoris; Z95.5 Presence of coronary angioplasty implant and graft; I11.0 Hypertensive heart disease with heart failure; I50.9 Heart failure, unspecified; Z86.718 Personal history of other venous thrombosis and embolism; I95.9 Hypotension, unspecified; D63.8 Anemia in other chronic diseases classified elsewhere; E83.42 Hypomagnesemia; I73.9 Peripheral vascular disease, unspecified; Z68.39 Body mass index [BMI] 39.0-39.9, adult; D69.59 Other secondary thrombocytopenia; N28.1 Cyst of kidney, acquired
CPT/HCPCS: 36415; 36556; 50200; 51700; 71045; 74018; 74470; 76705; 76770; 76937; 76942; 77001; 80048; 80053; 80061; 81001; 81050; 82040; 82140; 82550; 82553; 82565; 82570; 82575; 82728; 82784; 82785; 82945; 82948; 83010; 83036; 83540; 83605; 83615; 83735; 83880; 84100; 84156; 84157; 84165; 84166; 84300; 84436; 84443; 84466; 84479; 84484; 85007; 85025; 85027; 85045; 85379; 85384; 85610; 85730; 86021; 86022; 86160; 86225; 86334; 86335; 86704; 86706; 87040; 87070; 87086; 87102; 87116; 87205; 87206; 87340; 89051; 93005; 93306; 93970; 94640; 94660; 96372; 97139; 99251; 99284; J0696; J1644; J1817; J1940; J2150; J2250; J2916; J3010; J3370; J7030; J7050; J7512; P9047; U0002